=== PATIENT | male | born 1970 | race Two or more races ===

== ENCOUNTER 2024-11-18 15:28 | Emergency (ER) | payer OTHER ==
[~2024-11-18] VITALS: Ht 177.8 cm; Wt 68.0 kg
[2024-11-18] MEDS ORDERED: TOBRADEX ST EYE5 ML OP (19:26)
== END 2024-11-18 21:05 | disposition home or self-care (01) ==
LOC: ER 15:31
DX: H10.9 Unspecified conjunctivitis (principal); H01.003 Unspecified blepharitis right eye, unspecified eyelid